=== PATIENT | male | born 1955 | race Caucasian/White ===

== ENCOUNTER 2019-05-04 12:14 | Emergency (ER) | payer OTHER, SELFPAY ==
--- NOTE | 2019-05-04 12:16 | DI.RAD.S_ITS ---
PROCEDURE: XR FINGER RT MIN 2V INDICATIONS: thumb vs table saw TECHNIQUE: AP hand, 2 views of the thumb were obtained. COMPARISON: None. FINDINGS: Bones: No fractures or dislocations. No suspicious bony lesions. Severe degenerative changes involving the basal joint of the thumb are evident. Degenerative cystic changes of the capitate may be present. Soft tissues: No suspicious soft tissue calcifications. No radiopaque foreign bodies. Soft tissue injury involving the distal aspect of the thumb is present. IMPRESSION: 1. No acute fractures of the right thumb. 2. No radiopaque foreign bodies. Dictated by: Dami Contreras M.D. on 05/04/2019 at 12:29 Approved by: Dami Contreras M.D. on 05/04/2019 at 12:30
--- NOTE | 2019-05-04 12:18 | ED.GENADULT ---
HPI - General Adult General Chief complaint: Extremity Injury, Upper Stated complaint: right hand thumb injury Time Seen by Provider: 05/04/19 12:15 Source: patient Mode of arrival: Ambulatory Limitations: no limitations History of Present Illness HPI narrative: 63-year-old [id number] male here for evaluation of a cut to his right thumb. Patient states that his last tetanus shot was in the past 4-5 years. He cut his thumb on a table saw. Patient is a modified trauma given the hand for stable Saw. Patient did cover it with a bandage given the emergency department for evaluation Related Data Previous Rx's Medication Instructions Recorded cephalexin [Keflex] 500 mg PO QID 5 Days #20 cap 05/04/19 tramadol [Ultram] 50 mg PO Q6H PRN #5 tab 05/04/19 Allergies Allergy/AdvReac Type Severity Reaction Status Date / Time No Known Drug Allergies Allergy Verified 05/04/19 12:21 Review of Systems Constitutional Constitutional: Denies fever(s) Musculoskeletal Musculoskeletal: Denies tingling Comments: Pain to right thumb Integumentary/Breasts Comments: Cut to right thumb Neurologic Neurologic: Denies tingling Hematologic/Lymphatic Hematologic/Lymphatic: Denies easy bleeding and Denies easy bruising Patient History Surgical History No pertinent past surgical history (Acute) Family History (Updated 05/20/17 @ 00:00 by Sharan Leon RN) Father Age: 97 Cancer Mother Cancer Mental health problem Social History marital status: lives independently: Yes Exam Initial Vital Signs Initial Vital Signs: Vital Signs Temperature 98.8 F 05/04/19 12:21 Pulse Rate 66 05/04/19 12:21 Respiratory Rate 16 05/04/19 12:21 Blood Pressure 135/69 05/04/19 12:21 Pulse Oximetry 98 05/04/19 12:21 Const General: cooperative and comfortable Cardio Pulses: radial pulses present on the right Skin Other: Patient with a 5-6 cm ?V? cut to the pad of the right thumb. Does not involve the nail. Does not involve the nail bed. Does not involve the IP joint. Neuro General: alert and awake Sensory Exam: no sensory deficits noted Extrem Other: MCP and IP joint right thumb unremarkable Procedures Laceration Repair Laceration 1: Site: other (Thumb) Side (If applicable): right Size (cm): 8 Description: irregular Depth: simple, single layer Local Anesthetic: lidocaine 2% Amount of anesthesia used (mL): 10 Pre-repair: wound explored, irrigated extensively and deep structures intact Skin layer closed with: nylon Size (cm): 4-0 Number of sutures: 14 Technique: simple, interrupted Course Orders Ordered: ED Orders 05/04/19 12:16 XR finger RT min 2V Stat Discontinued Medications Bacitracin (Bacitracin) 1 applic TOP NOW ONE Stop: 05/04/19 13:04 Cephalexin HCl (Keflex) 500 mg PO NOW ONE Stop: 05/04/19 12:27 Last Admin: 05/04/19 12:32 Dose: 500 mg Documented by: JULIETTE Lidocaine HCl (Xylocaine 1%) 1 ml SUBCUT NOW ONE Stop: 05/04/19 12:17 Last Admin: 05/04/19 13:01 Dose: Not Given Documented by: JULIETTE Vital Signs Vital signs: Vital Signs - 8 hr 05/04/19 12:21 Temperature 98.8 F Pulse Rate 66 Respiratory Rate 16 Blood Pressure 135/69 Pulse Oximetry 98 Medical Decision Making Imaging Data Extremity x-ray #1: Radiologist's Impression: No fractures or foreign bodies of right thumb Discharge Plan Departure Patient Disposition: Home Clinical Impression: Laceration Instructions: DI for Laceration Repair Activity Restrictions/Additional Instructions: The stitches do need to be removed in 7-10 days. After 24 hours you can remove the bandage that was placed here in the emergency department. You can shower like normal. You can use soap and water like normal. Do not soak your hand until the cut is healed. Return to the emergency department for any new or worsening symptoms Prescriptions: New cephalexin [Keflex] 500 mg capsule 500 mg PO QID 5 Days Qty: 20 RF: 0 tramadol [Ultram] 50 mg tablet 50 mg PO Q6H PRN (Reason: pain) Qty: 5 RF: 0 Referrals: Lionel Sellers MD [Primary Care Provider] -
[2019-05-04 12:21] VITALS: BP 135/69; PULSE 66; RESP 16; TEMP 37.1; O2SAT 98; BMI 29.0
[2019-05-04] MEDS: LIDOCAINE 2% INJ MDV 20 ML (12:30)
[2019-05-04] MEDS: cephALEXin 250 MG CAPSULE 500 MG PO (12:32)
[2019-05-04] MEDS: BACITRACIN OINT 0.9 GM PCKT 1 APPLIC TOP (13:10)
== END 2019-05-04 13:19 | disposition home or self-care (01) ==
PROVIDERS: Emergency Provider Emergency Medicine; PCP Family Medicine
DX: S61.011A Laceration without foreign body of right thumb without damage to nail, initial encounter (principal); W31.2XXA Contact with powered woodworking and forming machines, initial encounter
CPT/HCPCS: 12004; 73140; 99284

== ENCOUNTER → 2019-08-30 13:47 | Outpatient (CLI) | payer OTHER, SELFPAY ==
[2019-08-30 15:32] LABS: Alanine Aminotransferase 21 IU/L (<50); Albumin 4.4 g/dL (3.5-5.0); Albumin Globulin Ratio 1.5 (1.0-2.8); Alkaline Phosphatase 44 U/L (38-126); Aspartate Aminotransferase 27 IU/L (17-59); BUN Creatinine Ratio 18.4 (6-22); Bilirubin Total 0.4 mg/dL (0.2-1.3); Blood Urea Nitrogen 19 mg/dL (9-20); Calcium 9.7 mg/dL (8.4-10.2); Carbon Dioxide 26 mmol/L (22-32); Chloride 103 mmol/L (98-107); Cholesterol 249 mg/dL (140-199); Estimated Glomerular Filt Rate > 60.0 mL/min (>60); Glucose 73 mg/dL (80-110); HDL Cholesterol 41 mg/dL (40-60); HEMOLYSIS < 15 (0-50); LDL Cholesterol Calculated 141 mg/dL (<100); Potassium 4.8 mmol/L (3.4-5.1); Sodium 138 mmol/L (137-145); Total Protein 7.4 g/dL (6.3-8.2); Triglycerides 334 mg/dL (35-150)
== END ==
PROVIDERS: PCP Internal Medicine; Referring Provider Internal Medicine; Visit Provider Internal Medicine
DX: E78.2 Mixed hyperlipidemia (principal); N52.9 Male erectile dysfunction, unspecified
CPT/HCPCS: 36415; 80053; 80061

== ENCOUNTER → 2023-10-28 12:35 | Outpatient (CLI) | payer MEDICARE, SELFPAY ==
--- NOTE | 2023-10-28 12:37 | DI.RAD.S_ITS ---
PROCEDURE: XR CHEST 2V INDICATIONS: eval chronic cough TECHNIQUE: 2 views of the chest were acquired. COMPARISON: None. FINDINGS: Surgical changes and devices: None. Lungs and pleura: Lungs are clear. No pleural effusions or pneumothorax. Mediastinum: Mediastinal contours are normal. Heart size is normal. Bones and chest wall: No suspicious bony abnormalities. Soft tissues appear unremarkable. IMPRESSION: No acute cardiopulmonary abnormality is seen. Dictated by: Max Bullock M.D. on 10/28/2023 at 14:12 Approved by: Max Bullock M.D. on 10/28/2023 at 14:12
[2023-10-28 13:40] LABS: Add Manual Diff / Slide Review NO; Basophils Absolute Auto 100 /uL (0-100); Basophils Percent Auto 0.9 % (0-2); Eosinophils Absolute Auto 200 /uL (0-450); Eosinophils Percent Auto 3.5 % (2-4); Hematocrit 39.7 % (41-53); Hemoglobin 13.6 g/dL (13.5-17.5); Lymphocytes Absolute Auto 1800 /uL (1100-4500); Lymphocytes Percent Auto 29.3 % (25-40); Mean Corpuscular HGB Conc 34.3 % (30-36); Mean Corpuscular Hemoglobin 31.9 PG (26-34); Mean Corpuscular Volume 92.9 fL (80-100); Monocytes Absolute Auto 700 /uL (0-900); Monocytes Percent Auto 10.8 % (3-14); Neutrophils Absolute Auto 3400 /uL (1500-7000); Neutrophils Percent Auto 55.5 % (50-75); Platelet Count 282 X10^3/uL (150-400); Red Blood Cell Count 4.28 X10^6/uL (4.5-5.9); White Blood Cell Count 6.1 X10^3/uL (4.5-11.0)
[2023-10-28 14:44] LABS: Alanine Aminotransferase 26 IU/L (<50); Albumin 4.3 g/dL (3.5-5.0); Albumin Globulin Ratio 1.7 (1.0-2.8); Alkaline Phosphatase 47 U/L (38-126); Aspartate Aminotransferase 39 IU/L (17-59); Bilirubin Total 0.7 mg/dL (0.2-1.3); Blood Urea Nitrogen 17 mg/dL (9-20); Calcium 9.7 mg/dL (8.4-10.2); Carbon Dioxide 26 mmol/L (22-32); Chloride 104 mmol/L (98-107); Estimated Glomerular Filt Rate > 60 mL/min (>60); Globulin 2.6 g/dL (1.7-4.1); Glucose 99 mg/dL (80-110); HEMOLYSIS < 15 (0-50); Potassium 4.9 mmol/L (3.4-5.1); Sodium 138 mmol/L (137-145); Total Protein 6.9 g/dL (6.3-8.2); Triglycerides 85 mg/dL (35-150)
[2023-10-28 14:45] LABS: Cholesterol 162 mg/dL (140-199); HDL Cholesterol 67 mg/dL (40-60); LDL Cholesterol Calculated 78 mg/dL (<100)
[2023-10-28 15:15] LABS: Prostate Specific Antigen Scrn 4.05 ng/mL (0.1-4.0)
== END ==
LOC: LAB 12:36
PROVIDERS: PCP Family Medicine; Referring Provider Family Medicine; Visit Provider Family Medicine
DX: Z00.00 Encounter for general adult medical examination without abnormal findings (principal); R05.3 Chronic cough; E78.5 Hyperlipidemia, unspecified; Z12.5 Encounter for screening for malignant neoplasm of prostate; Z87.891 Personal history of nicotine dependence
CPT/HCPCS: 36415; 71046; 80053; 80061; 85025; G0103

== ENCOUNTER 2023-12-18 14:20 | Day surgery (SDC) | payer MEDICARE, SELFPAY ==
--- NOTE | 2023-12-18 | PATH_ITS ---
[facility] Accession Number: [id number] No. of containers..01 Tissue . 01 Material submitted: . colon - DESCENDING COLON POLYP . 01 Diagnosis: DESCENDING COLON POLYP: Colonic mucosa with focal mucosal hyperplasia. Negative for dysplasia or malignancy. Additional step sections examined. MRV 12/23/2023 1438 Local . 01 Electronically signed: . Jeff Vyas MD, PhD, Pathologist NPI- [id number] . 01 Gross description: . Received in formalin with two patient identifiers and descending colon polyp, is a single rodriguez soft tissue fragment, 0.3 cm in greatest dimension. Submitted in A1. ([id number]) /MRV 12/21/2023 0738 Local . 01 Pathologist provided ICD-10: K63.5 . 01 CPT . 243899 Performed at: [address] [facility] [id number] MD Alexis Schneider MD Phone: [phone]
--- NOTE | 2023-12-18 14:33 | PM.HP.1 ---
History of Present Illness History of Present Illness Date Patient Seen: 12/18/23 Time Patient Seen: 14:33 Chief complaint: Colonoscopy Narrative: 68-year-old man here for screening colonoscopy. Last colonoscopy 20 years ago normal. No family history of colon cancer. No abdominal concerns today. [facility] Medical History Preventative health care Bilateral plantar fasciitis Hyperlipidemia Herpes (~1987) Surgical History Anesthesia History of hernia repair (~1958) No pertinent past surgical history Family History Father Cancer Mother Cancer Mental health problem Dementia Grandfather Cancer Grandfather History of heart disease Social History marital status: household members: significant other lives independently: Yes Smoking Status: Former smoker alcohol intake: current Meds Home Medications and Allergies Home Medications Medication Instructions Recorded Confirmed Type aspirin 81 mg tablet,delayed 81 mg PO DAILY 06/10/22 12/18/23 History release (Adult Low Dose Aspirin) atorvastatin 20 mg tablet 20 mg PO DAILY #90 tabs 06/16/23 12/18/23 Rx sodium,potassium,mag sulfates 17.5 See Rx Instructions PO .COMPLEX 10/13/23 Rx gram-3.13 gram-1.6 gram oral soln #354 mL (Suprep Bowel Prep Kit) Allergies Allergy/AdvReac Type Severity Reaction Status Date / Time No Known Drug Allergies Allergy Verified 12/18/23 15:05 Exam Narrative Exam Narrative: General adult man alert oriented no acute distress Chest nonlabored respiration Extremities warm well perfused Assessment & Plan Assessment and plan (1) Screening for colorectal cancer: Status: Acute Assessment & Plan narrative: The patient requires colorectal screening and colonoscopy is recommended. Technical details were discussed. Risks, benefits, alternatives explained. Risks including but not limited to myocardial infarction, aspiration, bleeding, pain, missed lesion, incomplete examination, need for further radiographic studies, intestinal injury, and need for major abdominal surgery were discussed. All questions were answered to their satisfaction, and they are in agreement with this plan. Time-Based Coding :: [TOTAL MINUTES] spent with patient and on the chart (including review of chart, obtaining history, exam, reviewing outside data, placing orders, documenting exam and treatment plan, and counseling patient) on [DATE].
[2023-12-18] MEDS: LACTATED RINGERS 1,000 ML 100 ML IV (15:02)
[2023-12-18 15:06] VITALS: BP 103/58; PULSE 54; RESP 16; TEMP 36.6; O2SAT 100; BMI 26.2
[2023-12-18 15:56] VITALS: BP 101/56; PULSE 54; RESP 15; TEMP 36.8; O2SAT 95
--- NOTE | 2023-12-18 15:59 | P.OP.COLON_ITS ---
Operative Date/Time/Diagnoses Date of procedure: 12/18/23 Time of procedure: 15:59 Pre-op diagnosis: Colorectal screening Post-op diagnosis: other (Colonic polyp x1) Procedure & Clinicians Study performed: Screening colonoscopy and polypectomy Same procedure as scheduled: Yes Indications: Screening Surgeon: Juan Redding Procedure Notes Procedure in detail: The history and physical was performed/updated and the patient is ASA class is 2. The procedure was discussed in detail with the patient. Potential risks complications including infection, bleeding, missed diagnosis, perforation, need for surgery, and were explained. Their questions were answered and informed consent was obtained. Patient was brought to the procedure room and placed standard monitoring equipment. The patient's vital signs were monitored continuously throughout the entire procedure. Prior to starting time-out was performed. The patient was placed in the left lateral recumbent position. Procedural sedation was administered by anesthesia. Examination began with a thorough inspection of the perianal area there was no evidence of fissures, fistulae, external hemorrhoids or cutaneous malignancy. The colonoscopy scope was then placed into the anal canal and was advanced to the cecum, which was identified by the ileocecal valve, the appendiceal orifice and the confluence of the taenia. The scope was then slowly withdrawn examining colon thoroughly in all directions, irrigating it of any residual stool. The scope was retroflexed within the rectum The patient tolerated the procedure well. They will be discharged once criteria are met. The prep was of good/excellent quality. The withdrawl time was 7 minutes. FINDINGS * Descending colon 3 mm polyp removed with biopsy forceps * Extensive diverticulosis of distal colon Specimen(s): other (Descending colon polyp) Impression: Colonic polyp x1 Post-procedure Recommendations: High fiber diet Plan for aftercare: Follow-up is dependent on pathology findings Disposition: same day surgery
[2023-12-18 16:01] VITALS: BP 105/54; PULSE 50; RESP 15; O2SAT 96
[2023-12-18 16:06] VITALS: BP 107/64; PULSE 55; RESP 18; O2SAT 97
[2023-12-18 16:11] VITALS: PULSE 50; RESP 15; TEMP 36.4; O2SAT 97
[2023-12-18 16:16] VITALS: BP 118/62; PULSE 50; RESP 16; TEMP 36.3; O2SAT 99
== END 2023-12-18 16:31 | disposition home or self-care (01) ==
PROVIDERS: PCP Family Medicine; Referring Provider Surgery; Visit Provider Surgery
PROC: 0DJD8ZZ Inspection of Lower Intestinal Tract, Via Natural or Artificial Opening Endoscopic (ICD-10-PCS; CPT 45378; principal; 2023-12-18 15:15)
DX: Z12.11 Encounter for screening for malignant neoplasm of colon (principal); K57.30 Diverticulosis of large intestine without perforation or abscess without bleeding; K63.5 Polyp of colon
CPT/HCPCS: 45380; J2704

== ENCOUNTER → 2024-02-08 07:53 | Outpatient (CLI) | payer MEDICARE, SELFPAY ==
--- NOTE | 2024-02-08 18:01 | DI.NM.S_ITS ---
DATE OF SERVICE: 02/08/2024 PROCEDURE: Exercise treadmill stress test without imaging. ORDERING PROVIDER: Javan Day MD. INDICATIONS: The patient is a 68-year-old male with hyperlipidemia and significant coronary artery calcification on CT scanning. FINDINGS: 1. The patient was able to exercise for 13 minutes 57 seconds on a standard Mendel protocol suggesting exceptional exercise capacity with an DIONISIO of -89%, achieving 14.8 METs. 2. He had a normal heart rate and blood pressure response to exercise, achieving a maximum heart rate of 151 bpm (101% of his predicted maximum). 3. He had no chest discomfort or other anginal symptoms. 4. His resting ECG shows sinus rhythm with normal ST segments. There are no significant ST-segment shifts or arrhythmias with stress. IMPRESSION: 1. Normal exercise treadmill stress test for ischemia. 2. Exceptional exercise capacity without angina or arrhythmias. Tor Mojica - RS/keyanna/[place] doc#: [id number]/job#: [id number] dd: 02/08/2024 17:41:00 dt: 02/08/2024 17:48:00 DICTATING MD/COPIES TO: Darren Lu MD; Javan Day MD COPIES MNE: MARIANA;
== END ==
PROVIDERS: PCP Family Medicine; Referring Provider Internal Medicine Cardiovascular Disease; Visit Provider Internal Medicine Cardiovascular Disease
DX: I25.10 Atherosclerotic heart disease of native coronary artery without angina pectoris (principal); E78.5 Hyperlipidemia, unspecified
CPT/HCPCS: 93017

== ENCOUNTER → 2024-08-26 10:01 | Outpatient (CLI) | payer MEDICARE, SELFPAY ==
[2024-08-26 11:37] LABS: Alanine Aminotransferase 32 IU/L (<50); Albumin 4.3 g/dL (3.5-5.0); Albumin Globulin Ratio 1.8 (1.0-2.8); Alkaline Phosphatase 43 U/L (38-126); Aspartate Aminotransferase 39 IU/L (17-59); BUN Creatinine Ratio 15.6 (6-22); Bilirubin Total 0.8 mg/dL (0.2-1.3); Blood Urea Nitrogen 14 mg/dL (9-20); Calcium 9.3 mg/dL (8.4-10.2); Carbon Dioxide 24 mmol/L (22-32); Chloride 105 mmol/L (98-107); Cholesterol 125 mg/dL (140-199); Estimated Glomerular Filt Rate > 60 mL/min (>60); Globulin 2.4 g/dL (1.7-4.1); Glucose 97 mg/dL (70-99); HDL Cholesterol 66 mg/dL (40-60); HEMOLYSIS < 15 (0-50); LDL Cholesterol Calculated 49 mg/dL (<100); Potassium 4.4 mmol/L (3.4-5.1); Sodium 137 mmol/L (137-145); Total Protein 6.7 g/dL (6.3-8.2); Triglycerides 48 mg/dL (35-150)
[2024-08-26 12:03] LABS: Prostate Specific Antigen Scrn 3.67 ng/mL (0.1-4.0)
== END ==
PROVIDERS: PCP Family Medicine; Referring Provider Family Medicine; Visit Provider Family Medicine
DX: Z12.5 Encounter for screening for malignant neoplasm of prostate (principal); E78.00 Pure hypercholesterolemia, unspecified
CPT/HCPCS: 36415; 80053; 80061; G0103

== ENCOUNTER → 2025-01-11 15:02 | Outpatient (CLI) | payer MEDICARE, SELFPAY ==
--- NOTE | 2025-01-11 15:03 | DI.RAD.S_ITS ---
PROCEDURE: XR SHOULDER RT MIN 2V INDICATIONS: pain w/ abduction after lifting injury in October TECHNIQUE: 3 views of the shoulder were acquired. COMPARISON: CR, XR CHEST 2V, 10/28/2023, 11:55. FINDINGS: Bones: No fractures or dislocations. No suspicious bony lesions. Visualized ribs appear intact. Soft tissues: No suspicious soft tissue calcifications. IMPRESSION: Mild acromioclavicular joint degeneration. If pain persists, consider cross-sectional imaging such as CT or MRI. Dictated by: Cameron Wilder RR Interpreted: Jose Narvaez MD on 01/11/2025 at 15:17 Transcribed by: ELIGIO on 01/11/2025 at 15:17 Approved by: Jose Narvaez M.D. on 01/12/2025 at 9:43
== END ==
LOC: RAD 15:03
PROVIDERS: PCP Family Medicine; Referring Provider Physician Assistant; Visit Provider Physician Assistant
DX: S46.919A Strain of unspecified muscle, fascia and tendon at shoulder and upper arm level, unspecified arm, initial encounter (principal); M19.011 Primary osteoarthritis, right shoulder; X50.9XXA Other and unspecified overexertion or strenuous movements or postures, initial encounter
CPT/HCPCS: 73030

== ENCOUNTER → 2025-01-17 16:42 | Outpatient (CLI) | payer MEDICARE, SELFPAY ==
--- NOTE | 2025-01-17 16:45 | DI.MRI.S_ITS ---
PROCEDURE: MR SHOULDER RT WO CON INDICATIONS: pain w/ abduction after lifting injury in AUg , reduced ROM TECHNIQUE: Noncontrast oblique coronal T2 fast spin echo with fat saturation, oblique sagittal T1 spin echo and T2 fast spin echo with fat saturation, axial T1 spin echo and T2 fast spin echo with fat saturation through the shoulder. COMPARISON: None. FINDINGS: Image quality: Excellent. Rotator cuff: There is full-thickness rupture involving anterior fibers of distal supraspinatus at its insertion on humeral head with up to 7 mm medial retraction of torn tendon fibers and fluid-filled 9 mm in AP dimension. Low to moderate grade articular surface partial-thickness tear involving mid to posterior fibers of distal supraspinatus is seen extending to musculotendinous junction. Distal infraspinatus tendinosis is seen. Low-grade intrasubstance partial-thickness tear involving distal subscapularis is also noted. Sagittal images demonstrate no significant rotator cuff muscle atrophy. Bones and bursae: No bone marrow contusions or fractures. Mild to moderate acromioclavicular joint osteoarthritic changes are seen with downward osteophyte formation depressing on musculotendinous junction of supraspinatus. Type 2 acromion without an os acromiale. Small to moderate amount of subacromial subdeltoid bursal fluid, no loose bodies. Capsule and soft tissues: Signal abnormality and fraying involving superior anterior glenoid labrum consistent with superior anterior labral tear. The long head of the biceps tendon appears thickened intra-articularly. IMPRESSION: 1. Focal full-thickness perforation involving most anterior fibers of distal supraspinatus at its insertion on humeral head with up to 7 mm medial retraction of torn tendon fibers and a fluid-filled gap measures 9 mm in AP dimension. Low to moderate grade articular surface partial-thickness tear involving mid to posterior fibers of distal supraspinatus. Distal infraspinatus tendinosis. Low-grade intrasubstance partial-thickness tear involving distal subscapularis. 2. No marrow edema. No fracture or dislocation. [id number] acromioclavicular joint osteoarthritis. Small to moderate amount of joint effusion and subacromial subdeltoid bursal fluid, no loose bodies. 3. Finding is suggestive of superior anterior glenoid labral tear. 4. Proximal intra-articular portion of long head of biceps tendinosis. Dictated by: Bhupendra Obrien M.D. on 01/18/2025 at 11:08 Approved by: Bhupendra Obrien M.D. on 01/18/2025 at 11:12
== END ==
LOC: MRI 16:44
PROVIDERS: PCP Family Medicine; Referring Provider Physician Assistant; Visit Provider Physician Assistant
DX: M75.121 Complete rotator cuff tear or rupture of right shoulder, not specified as traumatic (principal); M19.011 Primary osteoarthritis, right shoulder; S43.439A Superior glenoid labrum lesion of unspecified shoulder, initial encounter; M25.411 Effusion, right shoulder
CPT/HCPCS: 73221